=== PATIENT | female | born 1985 | race Two or more races ===

== ENCOUNTER 2020-04-07 02:32 | Emergency (ER) | payer MEDICAID ==
[~2020-04-07] VITALS: Ht 175.3 cm; Wt 97.5 kg
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
[2020-04-07] MEDS: KETOROLAC TROMETHAMINE INJ 30 MG/ML VIAL IV ONE (03:30)
[2020-04-07] MEDS: CLINDAMYCIN 600 MG in IV D5W 100 ML IV ONE (03:30)
[2020-04-07] MEDS ORDERED: KETOROLAC TROMETHAMINE INJ 30 MG/ML VIAL ONE (03:33)
[2020-04-07] MEDS ORDERED: CLINDAMYCIN 900 MG/6 ML VIAL ONE (03:33)
[2020-04-07 03:43] LABS: BASOPHILS % (AUTO) 0.2 % (0.0-2.0); EOSINOPHILS % (AUTO) 1.2 % (0.0-6.0); HEMATOCRIT 30 % (33-45); HEMOGLOBIN 9.3 g/dL (11.5-14.8); LYMPHOCYTES # (AUTO) 2.7 /CMM (0.8-4.8); LYMPHOCYTES % (AUTO) 14.5 % (20.0-44.0); MEAN CORPUSCULAR HGB CONC 31 g/dl (31.0-36.0); MEAN CORPUSCULAR VOLUME 85 fL (82-100); MONOCYTES # (AUTO) 1.3 /CMM (0.1-1.30); MONOCYTES % (AUTO) 7.1 % (2.0-12.0); NEUTROPHILS # (AUTO) 14.3 /CMM (1.8-8.9); PLATELET COUNT (AUTO) 542 /CMM (150-450); RED BLOOD CELL COUNT(AUTO) 3.51 MIL/uL (4.0-5.2); WHITE BLOOD COUNT (AUTO) 18.6 K/uL (4.3-11.0)
[2020-04-07] MEDS ORDERED: IOHEXOL-300 100 ML VIAL IV ONE (03:51)
[2020-04-07] MEDS ORDERED: IV NS 0.9% 250 ML IV ONE (03:52)
[2020-04-07] MEDS ORDERED: CT SWABBABLE VALVE TRANS SET 1 EA INFUS.SET MC ONE (03:52)
[2020-04-07 04:05] LABS: CREATININE 0.8 mg/dL (0.6-1.3); POTASSIUM 3.1 mmol/L (3.5-5.1)
--- NOTE | 2020-04-07 04:25 | NUR ---
PT WAS PICKED UP FOR CT
--- NOTE | 2020-04-07 04:37 | NUR ---
BACK FROM CT
--- NOTE | 2020-04-07 04:56 | NUR ---
PAGED DR. DIAZ
--- NOTE | 2020-04-07 05:10 | NUR ---
DR. GLEZ SPEAKING WITH DR. DIAZ
--- NOTE | 2020-04-07 05:20 | NUR ---
CALLED [facility], NO [facility]
--- NOTE | 2020-04-07 05:24 | NUR ---
CALLED [facility], NO [facility]
[2020-04-07] MEDS: CEFTRIAXONE 1GM BAG (ER ONLY) 1 GM/50 ML PIGGYBACK IV ONE (05:30)
[2020-04-07] MEDS: IV NS 0.9% 500 ML BAG IV ONE (05:30)
--- NOTE | 2020-04-07 05:30 | NUR ---
[facility]OKE [facility] G[facility], NO BEDS AVAILABLE AT THIS TIME
--- NOTE | 2020-04-07 05:32 | NUR ---
SPOKE WITH GRAZYNA FROM [facility], NO BEDS AVAILABLE AT THIS TIME
--- NOTE | 2020-04-07 05:35 | NUR ---
SPOKE WITH GEOVANNA FROM [facility] [place], NO BEDS AVAILABLE AT THIS TIME
--- NOTE | 2020-04-07 05:41 | NUR ---
SPOKE WITH CORINA FROM [facility], WILL FAX CLINICAL INFORMATION PER REQUEST HOWEVER PER CORINA, TRANSFER CENTER DOES NOT OPEN UNTIL 65
[2020-04-07] MEDS ORDERED: CEFTRIAXONE 1GM BAG (ER ONLY) 50 ML IV ONE (05:49)
[2020-04-07 06:00] VITALS: BP 106/96
--- NOTE | 2020-04-07 06:00 | NUR ---
PT RESTING COMFORTABLY. VSS.
--- NOTE | 2020-04-07 06:05 | NUR ---
AT BEDSIDE SPEAKING TO PT.
--- NOTE | 2020-04-07 07:00 | NUR ---
IV removed. Catheter intact and site benign. Pressure and 4x4 applied to site. No bleeding noted.
--- NOTE | 2020-04-07 07:03 | NUR ---
PT ASKED TO GO AMA
--- NOTE | 2020-04-07 07:12 | NUR ---
Patient does not wish to proceed with medical care recommended by Dr. Ballard. Patient given information related to possible complications, up to and including , which could occur as a result of leaving the hospital at this time. Patient verbalizes understanding of risks involved due to leaving against medical advice. Patient has signed AMA form.
== END 2020-04-07 07:13 | disposition home or self-care (01) ==
LOC: ER 02:38
DX: L02.11 Cutaneous abscess of neck (principal); K04.7 Periapical abscess without sinus; Z98.890 Other specified postprocedural states
CPT/HCPCS: 36415; 70491; 80048; 85025; 96365; 96367; 96375; 99285; J0696; J1885; J3490; J7030; J7050; J7060 ×2; Q9967

== ENCOUNTER 2020-05-23 09:01 | Emergency (ER) | payer OTHER, MEDICAID ==
[~2020-05-23] VITALS: Ht 170.2 cm; Wt 90.7 kg
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
--- NOTE | 2020-05-23 09:09 | NUR ---
SEEN AND EXAMINED BY
[2020-05-23 09:34] VITALS: BP 145/89
--- NOTE | 2020-05-23 09:34 | NUR ---
patient left in stable condition, accompanied by [employer] in custody. Denies any pain at this time.
== END 2020-05-23 09:34 ==
LOC: ER 09:04
DX: S61.521A Laceration with foreign body of right wrist, initial encounter (principal); S31.030A Puncture wound without foreign body of lower back and pelvis without penetration into retroperitoneum, initial encounter; S81.831A Puncture wound without foreign body, right lower leg, initial encounter; Z98.890 Other specified postprocedural states; W86.8XXA Exposure to other electric current, initial encounter; Y93.89 Activity, other specified; Y92.89 Other specified places as the place of occurrence of the external cause; Y99.8 Other external cause status
CPT/HCPCS: 10120; 99285; A6403